=== PATIENT | male | born 1955 | race Hispanic/Latino ===

== ENCOUNTER 2018-12-18 23:45 | Emergency (ER) | payer BC ==
[2018-12-19] MEDS ORDERED: ASPIRIN 325 MG TABLET ONE (00:34)
[2018-12-19] MEDS ORDERED: SODIUM CHLORIDE 0.9% 1000ML 1,000 ML IV ONE (00:34)
[2018-12-19 00:36] LABS: BASOPHILS % (AUTO) 0.9 % (0.0-5.0); EOSINOPHILS % (AUTO) 2.8 % (0.0-8.0); HEMATOCRIT 44.8 % (42-54); LYMPHOCYTES % (AUTO) 39.6 % (21.0-51.0); MEAN CORPUSCULAR HEMOGLOBIN 31.3 pg (27.0-33.0); MEAN CORPUSCULAR HGB CONC 34.3 g/dL (32.0-36.0); MEAN CORPUSCULAR VOLUME 91.1 fL (79-99); MONOCYTES % (AUTO) 7.3 % (3.0-13.0); NEUTROPHILS % (AUTO) 49.4 % (40.0-77.0); NUCLEATED RED BLOOD CELLS 0.1 % (0.0-0.19); PLATELET COUNT (AUTO) 250 K/uL (130-400); RED BLOOD CELL COUNT(AUTO) 4.92 MIL/uL (4.50-6.20); RED CELL DISTRIBUTION WIDTH 13.5 % (11.0-15.5); WHITE BLOOD COUNT (AUTO) 10.4 K/uL (4.8-10.8)
[2018-12-19 00:45] LABS: CREATININE 1.3 mg/dL (0.5-1.5)
[2018-12-19 00:48] LABS: INR 1.09 (0.85-1.15); PARTIAL THROMBOPLASTIN TIME 34.5 SEC (26.3-35.5); PROTHROMBIN TIME 11.4 SEC (9.6-11.6)
[2018-12-19 00:50] LABS: ALBUMIN 3.6 g/dL (3.5-5.0); BILIRUBIN,TOTAL 0.4 mg/dL (0.2-1.0); TOTAL PROTEIN, SERUM 7.3 g/dL (6.0-8.3)
[2018-12-19 00:54] LABS: B-TYPE NATRIURETIC PEPTIDE 46 pg/mL (0-100)
[2018-12-19] MEDS ORDERED: DILTIAZEM HCL 60 MG TABLET ONE (01:27)
[2018-12-19] MEDS ORDERED: DILTIAZEM HCL 5 MG/ML 5 ML VIAL IVP ONE (01:39)
== END 2018-12-19 03:05 | disposition home or self-care (01) ==
LOC: EDH 23:45
DX: I48.0 Paroxysmal atrial fibrillation (principal); I10 Essential (primary) hypertension; E78.5 Hyperlipidemia, unspecified; Z79.899 Other long term (current) drug therapy
CPT/HCPCS: 36415; 71045; 80053; 82550; 83880; 84484; 85025; 85610; 85730; 93005; 96374; 96376; 99285; J3490; J7030; 96375

== ENCOUNTER 2021-01-30 01:08 | Inpatient (IN) | payer BC ==
[~2021-01-30] VITALS: Ht 177.8 cm; Wt 128.5 kg
[2021-01-30] MEDS ORDERED: APIX5TAB PO (01:51)
[2021-01-30] MEDS ORDERED: LOSA1TAB54 PO (01:51)
[2021-01-30] MEDS ORDERED: LORA10TA7 PO (01:51)
[2021-01-30] MEDS ORDERED: DRON400T7 PO ×2 (01:51→16:15)
[2021-01-30] MEDS ORDERED: ATOR10 PO (01:51)
[2021-01-30 02:00] LABS: BASOPHILS % (AUTO) 0.6 % (0.0-5.0); EOSINOPHILS % (AUTO) 1.7 % (0.0-8.0); HEMATOCRIT 47.9 % (42-54); LYMPHOCYTES % (AUTO) 31.2 % (21.0-51.0); MEAN CORPUSCULAR HEMOGLOBIN 30.4 pg (27.0-33.0); MEAN CORPUSCULAR HGB CONC 33.6 g/dL (32.0-36.0); MEAN CORPUSCULAR VOLUME 90.5 fL (79-99); MONOCYTES % (AUTO) 7.2 % (3.0-13.0); PLATELET COUNT (AUTO) 269 K/uL (130-400); RED BLOOD CELL COUNT(AUTO) 5.29 MIL/uL (4.50-6.20); RED CELL DISTRIBUTION WIDTH 13.2 % (11.0-15.5); WHITE BLOOD COUNT (AUTO) 12.4 K/uL (4.8-10.8)
[2021-01-30] MEDS ORDERED: DILTIAZEM 25MG INJ IVP SCH (02:00)
[2021-01-30] MEDS ORDERED: DILTIAZEM 125 MG/25 ML INJ 125 MG in 0.9%NACL 100ML 100 ML IV PRN (02:00)
[2021-01-30] MEDS ORDERED: 0.9%NACL 100ML 100 ML ONE (02:02)
[2021-01-30] MEDS ORDERED: DILTIAZEM 50MG VIAL IV ONE (02:02)
[2021-01-30] MEDS ORDERED: DILTIAZEM 125 MG/25 ML INJ IV ONE (02:02)
[2021-01-30 02:12] LABS: AMPHET/METH SCREEN,URINE NEGATIVE (NEGATIVE); BARBITURATE SCREEN, URINE NEGATIVE (NEGATIVE); BENZODIAZEPINES SCREEN,URINE NEGATIVE (NEGATIVE); CANNABINOID SCREEN,URINE NEGATIVE (NEGATIVE); COCAINE SCREEN,URINE NEGATIVE (NEGATIVE); OPIATE SCREEN,URINE NEGATIVE (NEGATIVE); PHENCYCLIDINE SCREEN,URINE NEGATIVE (NEGATIVE)
[2021-01-30 02:32] LABS: CREATININE 1.2 mg/dL (0.5-1.5); POTASSIUM 3.6 mmol/L (3.5-5.1)
[2021-01-30 02:35] LABS: INR 1.06 (0.85-1.15); PROTHROMBIN TIME 11.5 SEC (9.6-11.6)
[2021-01-30 02:37] LABS: ALBUMIN 3.5 g/dL (3.5-5.0); BILIRUBIN,TOTAL 0.5 mg/dL (0.2-1.0); PARTIAL THROMBOPLASTIN TIME 32.2 SEC (26.3-35.5); TOTAL PROTEIN, SERUM 7.2 g/dL (6.0-8.3)
[2021-01-30] MEDS ORDERED: PHARMACY COMMUNICATION MISC SCH (04:30)
[2021-01-30 05:00] VITALS: BP 127/96
[2021-01-30] MEDS ORDERED: ONDANSETRON 4MG INJ IVP PRN (05:30)
[2021-01-30] MEDS ORDERED: ACETAMINOPHEN 325 MG TAB PO PRN ×3 (05:30→09:30)
[2021-01-30 06:48] VITALS: BP 124/84
[2021-01-30 08:00] VITALS: BP 101/56
[2021-01-30] MEDS ORDERED: APIXABAN 5 MG TABLET PO SCH (09:00)
[2021-01-30] MEDS ORDERED: DRONEDARONE HYDROCHLORIDE 400 MG TABLET PO SCH (09:00)
[2021-01-30] MEDS ORDERED: LOSARTAN/HYDROCHLOROTHIAZIDE 50-12.5MG TABLET PO SCH (09:00)
[2021-01-30] MEDS ORDERED: DiphenhydrAMINE HCL 50 MG/ML VIAL IV PRN (09:30)
[2021-01-30] MEDS ORDERED: KCL 20 MEQ ERTAB PO PRN (09:30)
[2021-01-30] MEDS ORDERED: ONDANSETRON 4MG INJ IV PRN (09:30)
[2021-01-30] MEDS ORDERED: MAG/ALUM/SIMETH 30 ML UDCUP PO PRN (09:30)
[2021-01-30] MEDS ORDERED: POTASSIUM CHLORIDE 10% ELIXIR 20 MEQ/15 ML UDCUP PO PRN (09:30)
[2021-01-30] MEDS ORDERED: LIDOCAINE HCL-MPF 1% 2ML VIAL IV PRN (09:30)
[2021-01-30] MEDS ORDERED: 0.9%NACL 1000ML 1,000 ML IV SCH (09:30)
[2021-01-30] MEDS ORDERED: LACTULOSE 20 GM/30 ML UDCUP PO PRN (09:30)
[2021-01-30] MEDS ORDERED: POTASSIUM CHLORIDE 20MEQ/100ML 100 ML IV PRN (09:30)
[2021-01-30] MEDS ORDERED: DIPHENHYDRAMINE HCL 25 MG CAPSULE PO PRN (09:30)
[2021-01-30 10:57] VITALS: BP 108/60
[2021-01-30 16:00] VITALS: BP 109/63
[2021-01-30] MEDS ORDERED: ATORVASTATIN 10 MG TABLET PO SCH (21:00)
== END 2021-01-30 19:10 | disposition home or self-care (01) | DRG 309 ==
LOC: EDH 01:08 → EDHIP 03:25 → 4CH 05:03
PROVIDERS: ADMIT Internal Medicine; ATTEND Internal Medicine
DX: I48.0 Paroxysmal atrial fibrillation (principal); Z68.41 Body mass index [BMI] 40.0-44.9, adult; I50.30 Unspecified diastolic (congestive) heart failure; I11.0 Hypertensive heart disease with heart failure; E66.01 Morbid (severe) obesity due to excess calories; E11.69 Type 2 diabetes mellitus with other specified complication; E78.2 Mixed hyperlipidemia; G47.33 Obstructive sleep apnea (adult) (pediatric); J30.9 Allergic rhinitis, unspecified; K21.9 Gastro-esophageal reflux disease without esophagitis; L71.9 Rosacea, unspecified; E78.00 Pure hypercholesterolemia, unspecified; Z96.1 Presence of intraocular lens; F17.210 Nicotine dependence, cigarettes, uncomplicated; I25.10 Atherosclerotic heart disease of native coronary artery without angina pectoris; J44.9 Chronic obstructive pulmonary disease, unspecified; Z98.42 Cataract extraction status, left eye; Z98.84 Bariatric surgery status; Z79.01 Long term (current) use of anticoagulants; Z79.84 Long term (current) use of oral hypoglycemic drugs; Z79.899 Other long term (current) drug therapy; Z87.442 Personal history of urinary calculi
CPT/HCPCS: 36415; 71045; 80053; 80305; 82550; 83874; 84484; 85025; 85610; 85730; 93005; G0378; J3490

== ENCOUNTER 2021-11-03 19:17 | Emergency (ER) | payer BC ==
[~2021-11-03] VITALS: Ht 177.8 cm; Wt 131.5 kg
[~2021-11-03 19:17] MED LIST: APIX5TAB PO; ATOR10 PO; DRON400T7 PO; LORA10TA7 PO; LOSA1TAB54 PO
[2021-11-03 19:46] LABS: BASOPHILS % (AUTO) 0.8 % (0.0-5.0); EOSINOPHILS % (AUTO) 2.6 % (0.0-8.0); HEMATOCRIT 43.9 % (42-54); LYMPHOCYTES % (AUTO) 39.1 % (21.0-51.0); MEAN CORPUSCULAR HGB CONC 34.9 g/dL (32.0-36.0); MEAN CORPUSCULAR VOLUME 88.9 fL (79-99); MONOCYTES % (AUTO) 6.1 % (3.0-13.0); NEUTROPHILS % (AUTO) 51.2 % (40.0-77.0); PLATELET COUNT (AUTO) 263 K/uL (130-400); RED BLOOD CELL COUNT(AUTO) 4.94 MIL/uL (4.50-6.20); RED CELL DISTRIBUTION WIDTH 13.4 % (11.0-15.5); WHITE BLOOD COUNT (AUTO) 10.3 K/uL (4.8-10.8)
[2021-11-03 19:54] LABS: CREATININE 1.4 mg/dL (0.5-1.5); POTASSIUM 3.6 mmol/L (3.5-5.1)
[2021-11-03] MEDS ORDERED: DILTIAZEM 25MG INJ IVP ONE (20:00)
[2021-11-03 20:03] LABS: ALBUMIN 3.7 g/dL (3.5-5.0); MAGNESIUM 1.8 mg/dL (1.80-2.40); TOTAL PROTEIN, SERUM 7.5 g/dL (6.0-8.3)
[2021-11-03] MEDS ORDERED: MIDAZOLAM HCL 5 MG/ML 2ML VIAL IV ONE (21:09)
[2021-11-03 21:19] VITALS: BP_DIAS 54
[2021-11-03 22:21] VITALS: BP 128/74
== END 2021-11-03 22:33 | disposition home or self-care (01) ==
LOC: EDH 19:17
DX: I48.0 Paroxysmal atrial fibrillation (principal); Z79.01 Long term (current) use of anticoagulants; E78.00 Pure hypercholesterolemia, unspecified; I10 Essential (primary) hypertension; Z79.899 Other long term (current) drug therapy; Z98.890 Other specified postprocedural states
CPT/HCPCS: 99284; 96374; 96375; 82550; 83735; 84484; 80053; 85025; 36415; 93005 ×3; J3490; J2250

== ENCOUNTER 2023-04-07 22:52 | Emergency (ER) | payer BC ==
[~2023-04-07] VITALS: Ht 177.8 cm; Wt 130.2 kg
[2023-04-08] MEDS ORDERED: LACTATED RINGERS 1000ML 1,000 ML IV ONE (01:00)
[2023-04-08] MEDS ORDERED: METOCLOPRAMIDE 10 MG/2 ML VIAL IVP ONE (01:00)
[2023-04-08] MEDS ORDERED: MORPHINE 4 MG SYG IVP ONE (01:00)
[2023-04-08] MEDS ORDERED: ACET-2079 PO (01:15)
[2023-04-08] MEDS ORDERED: POLY17PO4 PO (01:15)
[2023-04-08 02:53] VITALS: BP 136/62; PULSE 58; RESP 18; O2SAT 98
== END 2023-04-08 02:54 | disposition home or self-care (01) ==
LOC: EDH 22:52
DX: K92.2 Gastrointestinal hemorrhage, unspecified (principal); K64.9 Unspecified hemorrhoids; I48.91 Unspecified atrial fibrillation; Z79.899 Other long term (current) drug therapy; Z98.890 Other specified postprocedural states
CPT/HCPCS: 99284; 96374; 96361; 96375; J7120; J2270; J2765

== ENCOUNTER 2025-01-16 20:33 | Observation (INO) | payer BC, MEDICARE ==
[~2025-01-16] VITALS: Ht 177.8 cm; Wt 130.2 kg
[~2025-01-16 20:33] MED LIST changes: +ACET-2079 PO; +POLY17PO4 PO
[2025-01-16 20:59] LABS: IMMATURE GRANULOCYTE ABSOLUTE 0.02 K/uL (0-1); NUCLEATED RED BLOOD CELLS 0.0 % (0.0-0.19); PLATELET COUNT (AUTO) 246 K/uL (130-400); RED BLOOD CELL COUNT(AUTO) 4.69 MIL/uL (4.50-6.20); RED CELL DISTRIBUTION WIDTH 13.8 % (11.0-15.5); WHITE BLOOD COUNT (AUTO) 8.2 K/uL (4.8-10.8)
[2025-01-16 21:12] LABS: CREATININE 1.4 mg/dL (0.5-1.3); GLOMERULAR FILTR. RATE CALC 55.0 mL/min (>90); GLUCOSE,RANDOM 246.0 mg/dL (70-105); SODIUM SERUM 141.0 mmol/L (136-145); UREA NITROGEN, BLOOD 22.0 mg/dL (7-18)
--- NOTE | 2025-01-16 21:17 | ERN ---
ED Note History of Present Illness Stated Complaint: C/O PALPITATIONS, HX OF A-FIB Chief Complaint: Palpitations Time Seen by MD: 20:48 Dictation: 69-year-old male presents to ER complains of palpitations. Patient states has history of AFib. Has not had an episode since 3 years ago. Denies chest pain or shortness of breath Allergies: Coded Allergies: No Allergy Information Available (Verified Allergy, Unknown, 01/30/21) No Known Drug Allergies (Unverified Allergy, Unknown, 01/30/21) Home Meds Active Scripts Acetaminophen with Codeine (Acetaminophen-Cod #3 Tablet) 300 Mg-30 Mg Tablet, 2 TAB PO Q4H PRN for PAIN LEVEL 7 TO 10, #40 TAB 0 Refills Prov:MATI ATKINSON Sr., MD 04/08/23 Polyethylene Glycol 3350 (Miralax) 17 Gram Powd.pack, 17 GM PO DAILY for constipation, #20 PACKET 0 Refills Prov:MATI ATKINSON Sr., MD 04/08/23 Dronedarone Hydrochloride (Multaq) 400 Mg Tablet, 400 MG PO BID for 30 Days, #60 TAB 3 Refills Prov:TACHO VILLALOBOS MD 01/30/21 Reported Medications Loratadine (Loratadine) 10 Mg Tablet, 10 MG PO DAILY, TAB 01/30/21 Apixaban (Eliquis) 5 Mg Tablet, 5 MG PO BID, TAB 01/30/21 Losartan/Hydrochlorothiazide (Losartan-Hctz 100-25 mg Tab) 1 Each Tablet, 1 EACH PO DAILY, TAB 01/30/21 Atorvastatin Calcium (LIPITOR) 10 Mg Tab, 10 MG PO HS, TAB 01/30/21 Past Medical History Past Medical History: A-Fib, Hypertension Surgical History: Unknown Surgical History Other: GASTRIC SLEEVE Social History: Negative Review of System Dictation CONSTITUTIONAL: NEGATIVE FOR FEVER,CHILLS, AND WEIGHT LOSS EYES: NEGATIVE FOR INJURY, PAIN,REDNESS, AND DISCHARGE ENT: NEGATIVE FOR INJURY,PAIN OR SWELLING CARDIOVASCULAR: NEGATIVE FOR CHEST PAIN, AND EDEMA. Positive palpitations RESPIRATORY: NEGATIVE FOR SHORTNESS OF BREATH, COUGH, WHEEZING, AND PLEURITIC CHEST PAIN ABDOMEN/GI: NEGATIVE FOR ABDOMINAL PAIN, NAUSEA, VOMITING AND DIARRHEA. BACK: NEGATIVE FOR PAIN OR INJURY : NEGATIVE FOR INJURY, BLEEDING AND DISCHARGE MS/EXTREMITY: NEGATIVE FOR INJURY AND DEFORMITY SKIN: NEGATIVE FOR RASH, AND DISCOLORATION NEURO: NEGATIVE FOR HEADACHE, WEAKNESS, NUMBNESS, TINGLING, AND SEIZURE PSYCH: NEGATIVE FOR SUICIDE IDEATION, HOMICIDAL IDEATION, AND HALLUCINATIONS ALLERGY/IMMUNOLOGY: NEGATIVE FOR HIVES, RASH, AND ALLERGIES ALL SYSTEMS NEGATIVE, EXCEPT NOTED ABOVE. 13 POINT REVIEW OF SYSTEMS ASSESSED AND ALL NEGATIVE EXCEPT FOR ABOVE. Initial Vital Sign VS Vital Signs Date Time Temp Pulse Resp B/P (MAP) Pulse Ox O2 Delivery O2 Flow Rate FiO2 01/16/25 20:40 98.1 98 20 127/75 96 Room Air 01/16/25 20:53 0 21 Physical Exam Dictation General: awake, alert, NAD Head/Face: Normocephalic, atraumatic Eyes: PERRL, EOMI, vision at baseline ENT: oral cavity clear, TMs clear, no signs of infection Neck: Trachea midline, supple, no nuchal rigidity Cardiovascular: RRR, normal no JVD Respiratory: CTAB, no respiratory distress, No rales or wheezes Abdomen: Soft, non-tender, non-distended, normal bowel sounds, no guarding or rebound. Skin: Warm, dry, normal turgor, no rash MS/Extremity: Pulses equal, no cyanosis, neurovascular intact, FROM Neuro: COAx4, GCS 15, strength 5/5, CN 2-12 intact, normal cerebellar exam, normal gait, Psych: Normal behavior, mood, and affect normal Results (Laboratory/Radiology) Laboratory/Radiology Laboratory Tests Test 01/16/25 20:51 01/16/25 23:50 White Blood Count 8.2 K/uL (4.8-10.8) Red Blood Count 4.69 MIL/uL (4.50-6.20) Hemoglobin 14.4 g/dL (14.0-18.0) Hematocrit 42.6 % (42-54) Mean Corpuscular Volume 90.8 fL (79-99) Mean Corpuscular Hemoglobin 30.7 pg (27.0-33.0) Mean Corpuscular Hemoglobin Concent 33.8 g/dL (32.0-36.0) Red Cell Distribution Width 13.8 % (11.0-15.5) Platelet Count 246 K/uL (130-400) Mean Platelet Volume 11.4 fL (7.5-10.5) H Immature Granulocyte % (Auto) 0.2 % (0-1) Neutrophils (%) (Auto) 58.4 % (40.0-77.0) Lymphocytes (%) (Auto) 31.1 % (21.0-51.0) Monocytes (%) (Auto) 6.4 % (3.0-13.0) Eosinophils (%) (Auto) 3.0 % (0.0-8.0) Basophils (%) (Auto) 0.9 % (0.0-5.0) Neutrophils # (Auto) 4.8 K/uL (1.8-7.7) Lymphocytes # (Auto) 2.6 K/uL (1.0-4.8) Monocytes # (Auto) 0.5 K/uL (0.1-1.0) Eosinophils # (Auto) 0.25 K/uL (0.00-0.70) Basophils # (Auto) 0.07 K/uL (0.00-0.20) Absolute Immature Granulocyte (auto 0.02 K/uL (0-1) Nucleated Red Blood Cells 0.0 % (0.0-0.19) Sodium Level 141 mmol/L (136-145) Potassium Level 3.7 mmol/L (3.5-5.1) Chloride Level 103 mmol/L (101-111) Carbon Dioxide Level 27 mmol/L (21-32) Blood Urea Nitrogen 22 mg/dL (7-18) H Creatinine 1.4 mg/dL (0.5-1.3) H Glomerular Filtration Rate Calc 55 mL/min (>90) Random Glucose 246 mg/dL (70-105) H Total Calcium 8.7 mg/dL (8.5-10.1) Total Creatine Kinase 151 U/L (21-232) # Troponin I High Sensitivity 32 ng/L (4-75) Urine Color Light-Yellow (YELLOW) Urine Appearance CLEAR (CLEAR) Urine pH 5.5 (5.0-8.0) Urine Specific [place] 1.011 (1.001-1.031) Urine Protein NEGATIVE mg/dL (NEGATIVE) Urine Glucose (UA) >=1000 mg/dL (NEGATIVE) H Urine Ketones NEGATIVE mg/dL (NEGATIVE) Urine Occult Blood NEGATIVE (NEGATIVE) Urine Nitrate NEGATIVE (NEGATIVE) Urine Bilirubin NEGATIVE mg/dL (NEGATIVE) Urine Urobilinogen 0.2 mg/dL (0.2-1.0) Urine Leukocyte Esterase NEGATIVE Kaley/uL Urine RBC 2-5 /HPF (0-1) H Urine WBC 0-1 /HPF (0-1) Urine Squamous Epithelial Cells RARE /HPF (0-2) Urine Bacteria None /HPF (None Seen) Urine Hyaline Casts 2-5 /LPF (0-1 /LPF) H X-RAY Comment: PATIENT: RICKEY LITTLE MR#: [id number] : 1955 SEX: M AGE: 69 LOCATION: [facility] ORDER 50 STATUS: REG ER REPORT#: [id number] SERVICE 47 REASON: chest pain ORDERING PHYSICIAN: SARAI LOBO PROCEDURE: CXR1VW - CHEST 1VW EXAM: CR Chest, 1 view CLINICAL HISTORY: Chest pain. COMPARISON: None provided. FINDINGS: The lungs show no infiltrates or other acute findings. No pleural effusion or pneumothorax. The cardiomediastinal silhouette is within normal limits. No acute osseous abnormality. IMPRESSION: No acute cardiopulmonary process is evident. /[place] ED Course ED Course Orders Procedure Category Date Status Time Cbc With Differential LAB 01/16/25 Complete 20:48 Chest 1vw RAD 01/16/25 Resulted 20:48 12 Lead Ekg Tracing- EKG 01/16/25 Complete Technical 20:48 Creatine Kinase, Total LAB 01/16/25 Complete 20:48 Troponin I High LAB 01/16/25 Complete Sensitivity 20:48 Urinalysis Profile LAB 01/16/25 Complete 20:48 Basic Metabolic Panel LAB 01/16/25 Complete 20:48 Metoprolol Tartrate PHA 01/16/25 Complete (Lopressor) 21:30 12 Lead Ekg Tracing- EKG 01/16/25 Complete Technical 21:44 0.9%Nacl 1000ml (Ns PHA 01/16/25 Complete 1000ml) 23:00 Diltiazem 25mg Inj PHA 01/16/25 Complete (Cardizem 25mg Inj) 23:00 Diltiazem 25mg Inj PHA 10/16/25 Complete (Cardizem 25mg Inj) 00:30 12 Lead Ekg Tracing- EKG 01/17/25 Logged Technical 00:51 Magnesium LAB 01/17/25 Logged 01:26 Current Medications Medications (Trade) Dose Ordered Sig/Sahra Route PRN Reason Start Time Stop Time Status Last Admin Dose Admin Diltiazem HCl (CARDIzem 25MG INJ) 5 mg ONCE ONCE IVP 01/16/25 23:00 01/16/25 23:01 DC 01/16/25 23:00 Diltiazem HCl (CARDIzem 25MG INJ) 5 mg ONCE ONCE IVP 01/17/25 00:30 01/17/25 00:31 DC 01/17/25 00:22 Metoprolol Tartrate (loprESSOR) 5 mg STAT ONCE IV 01/16/25 21:30 01/16/25 21:31 DC 01/16/25 21:19 Sodium Chloride 1,000 ml @ 0 mls/hr ONCE ONCE IV 01/16/25 23:00 01/16/25 23:01 DC 01/16/25 22:58 Vital Signs Date Time Temp Pulse Resp B/P (MAP) Pulse Ox O2 Delivery O2 Flow Rate FiO2 01/17/25 01:00 94 18 164/94 96 Room Air* 0 01/17/25 00:22 104 162/83 01/17/25 00:22 104 14 162/83 98 Room Air* 0 01/16/25 23:48 98 14 151/79 98 Room Air* 0 01/16/25 23:00 114 143/84 01/16/25 22:47 114 16 143/84 97 Room Air* 0 01/16/25 22:21 100 18 122/51 97 Room Air* 0 21 01/16/25 21:39 98.2 104 20 164/84 98 Room Air* 0 01/16/25 21:19 122 16 163/80 97 Room Air* 0 01/16/25 21:19 122 163/80 01/16/25 20:53 98.2 133 16 188/107 97 Room Air* 0 01/16/25 20:40 98.1 98 20 127/75 96 Room Air Medical Decision Making MDM MDM: Differential diagnosis: AFib, palpitations, Rationale: Tests considered and ordered secondary to shared decision making include: labs, ECG and radiology Previous outside records reviewed: Old ER visits. Risk of complication and/or morbidity or mortality of patient management: None Medications-Per medication reconciliation Need for hospitalization: Patient does meet criteria for hospitalization. Need for emergency major/minor surgery: No There are no social concerns with this patient. Prescription drug management Prescriptions will include symptomatic care Patient's prior external medical records from other ER visits were reviewed by me as indicated. Prior testing and results from previous visits were reviewed. Prior tests were taken into account with medical decision making and resource utilization, independent historian/historians were used to obtain complete medical history. I independently interpreted the test that were performed, results were reviewed by me and considered findings on radiology if ordered. Attempted Lopressor IV for conversion with no success. Attempted Cardizem 5mg IV for conversion with no success attempted another 5 mg of Cardizem IV no success. Dr. Rodgers consulted for admission and accepted patient. DX & DISP Disposition: Inpatient Departure Impression: Primary Impression: Paroxysmal atrial fibrillation with RVR Condition: Stable Referrals: SIGRID RODGERS MD (PCP) SARAI LOBO OPERATIONS AGENT Jan 16, 2025 21:17
[2025-01-16 21:21] LABS: CREATINE KINASE, TOTAL 151.0 U/L (21-232)
--- NOTE | 2025-01-16 22:26 | HMCIMG ---
EXAM: CR Chest, 1 view CLINICAL HISTORY: Chest pain. COMPARISON: None provided. FINDINGS: The lungs show no infiltrates or other acute findings. No pleural effusion or pneumothorax. The cardiomediastinal silhouette is within normal limits. No acute osseous abnormality. IMPRESSION: No acute cardiopulmonary process is evident. /[place]
[2025-01-16] MEDS: 0.9%NACL 1000ML 1,000 ML IV ONE (22:58)
[2025-01-17 00:12] LABS: APPEARANCE,URINE CLEAR (CLEAR); GLUCOSE, URINE (UA) >=1000 mg/dL (NEGATIVE); LEUKOCYTE ESTERASE ,URINE NEGATIVE Leu/uL (NEGATIVE); NITRATE,URINE NEGATIVE (NEGATIVE); OCCULT BLOOD,URINE NEGATIVE (NEGATIVE)
[2025-01-17 00:15] LABS: ADD UA MICROSCOPIC YES
[2025-01-17 00:18] LABS: SQUAMOUS EPITHELIAL CELL,UR RARE /HPF (0-2)
--- NOTE | 2025-01-17 01:08 | EKG ---
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
--- NOTE | 2025-01-17 01:08 | EKG ---
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
[2025-01-17] MEDS ORDERED: ATOR40TA71 PO (01:55)
[2025-01-17] MEDS ORDERED: 0.9% NACL 500ML IV.SOLN 500 ML IV SCH (02:00)
[2025-01-17] MEDS ORDERED: DEXTROSE 50%-WATER 50 ML DISP.SYRIN IV PRN (02:00)
[2025-01-17] MEDS ORDERED: GLUCAGON 1MG KIT 1 MG ML IM PRN (02:00)
[2025-01-17] MEDS ORDERED: LACTULOSE 20 GM/30 ML UDCUP PO PRN (02:00)
[2025-01-17] MEDS ORDERED: guaiFENesin-DM 200/20MG 10ML PO PRN (02:00)
[2025-01-17] MEDS ORDERED: PoTASSium chloRIDE 20MEQ ER 20 MEQ ERTAB PO PRN ×2 (02:00)
[2025-01-17] MEDS ORDERED: PoTASSium chl 10% ELIXIR 20MEQ 20 MEQ/15 ML UDCUP PO PRN ×2 (02:00)
[2025-01-17] MEDS ORDERED: MAG/ALUM/SIMETH 30 ML UDCUP PO PRN (02:00)
[2025-01-17] MEDS ORDERED: 0.9%NACL 1000ML 1,000 ML IV SCH (02:00)
[2025-01-17] MEDS ORDERED: ATOR20TA65 PO (02:03)
[2025-01-17] MEDS ORDERED: TIRZ2.5P SQ (02:04)
[2025-01-17 02:24] LABS: CREATINE KINASE, TOTAL 155.0 U/L (21-232)
[2025-01-17] MEDS: 0.9%NACL 1000ML 1,000 ML IV SCH (03:54)
[2025-01-17] MEDS: MAGNESIUM 2GM PREMIX 50ML 50 ML IV PRN (06:17)
--- NOTE | 2025-01-17 06:30 | EKG ---
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
[2025-01-17 07:51] LABS: CREATININE 1.0 mg/dL (0.5-1.3); GLOMERULAR FILTR. RATE CALC 82.0 mL/min (>90); GLUCOSE,RANDOM 138.0 mg/dL (70-105); SODIUM SERUM 142.0 mmol/L (136-145); UREA NITROGEN, BLOOD 17.0 mg/dL (7-18)
--- NOTE | 2025-01-17 08:41 | HP ---
HISTORY AND PHYSICAL Date of Visit: Jan 17, 2025 Time of Visit: 08:28 ADMISSION DATE: Jan 17, 2025 at 01:38 CC: PALPITATIONS HPI: 69-year-old male presents to ER complains of palpitations. Patient states has history of AFib. Has not had an episode since 3 years ago. Denies chest pain or shortness of breath. He is also on GLP1 to help him with weight loss. He was having problems with cost of medication so he was rationing his medication to only taking once a day instead of twice a day for the entire month so that he would not brook out of medication until he got it re-authorized and covered at a reasonable [place]. No fever chills cough congestion. No abdominal pain nausea vomiting constipation. PAST MEDICAL HISTORY: HYPERTENSIVE HEART DISEASE SEVERE CONCENTRIC LVH W VENTRICULAR HYPERTROPHY AND EF 65% PAROX AFIB ON MULTAQ CAD - HEART CATH WITH 20% MID LAD LESION WITH LVEF 65% - 09/2013 DM II ON GLP1 MORBID OBESITY / BMI 42 MIXED HYPERLIPIDEMIA HX KIDNEY STONES ALLERGIC RHINITIS GERD CATARACTS HX GASTRIC SLEEVE SURGERY OBS SLEEP APNEA HX SPONTANEOUS ACUTE TEMPORAL SUBARACHNOID HEMORRHAGE ON XARELTO ANTICOAGULATION S/P REVERSAL OF ANTICOAGULANT AT FREE STANDING ER (status post infusion of Kcentra 08/23/2020) TRANSITIONED TO [facility] SOCIAL HISTORY: LIVES LOCALLY NO ALCOHOL TOBACCO OR DRUG ABUSE FAMILY HISTORY: + CAD ^ Patient History: Cardiovascular disease FATHER Allergies: Coded Allergies: No Allergy Information Available (Verified Allergy, Unknown, 01/30/21) amoxicillin (Unverified Allergy, Unknown, 01/17/25) clavulanic acid (Unverified Allergy, Unknown, 01/17/25) Scheduled Apixaban (Eliquis), 5 MG PO BID, (Reported) Atorvastatin Calcium (Atorvastatin Calcium), 1 TAB PO DAILY Dronedarone Hydrochloride (Multaq), 400 MG PO BID Loratadine (Loratadine), 10 MG PO DAILY, (Reported) Losartan/Hydrochlorothiazide (Losartan-Hctz 100-25 mg Tab), 1 EACH PO DAILY, (Reported) Tirzepatide (Mounjaro), 2.5 MG SQ QWEEK Discontinued Medications Acetaminophen with Codeine (Acetaminophen-Cod #3 Tablet), 2 TAB PO Q4H PRN for PAIN LEVEL 7 TO 10 Atorvastatin Calcium (Lipitor), 10 MG PO HS, (Reported) Atorvastatin Calcium (Atorvastatin Calcium), 1 TAB PO DAILY, (Reported) Polyethylene Glycol 3350 (Miralax), 17 GM PO DAILY Review of Systems Normal Constitutional:, Normal Eyes:, Normal Ear/Nose/Mouth/Throat, Normal Respiratory:, Normal Gastrointestinal:, Normal Genitourinary:, Normal Integumentary:, Normal Musculoskeletal:, Normal Neurological:, Normal Psychological:, Normal Endocrine:, Normal Hematologic/Lymphatic:, Normal Allergic/Immunologic:; Abnormal Cardiovascular: (REFER TO HPI) Physical Exam Vital Signs Vital Signs Date Time Temp Pulse Resp B/P (MAP) Pulse Ox O2 Delivery O2 Flow Rate FiO2 01/16/25 20:40 98.1 98 20 127/75 96 Room Air 01/16/25 20:53 0 21 Appearance: Obese Eyes: Clear, PERRL, EOM Normal Ear/Nose/Mouth/Throat: Landmarks WNL, Hearing WNL Neck: Symmetric, trach midline, Thyroid WNL Cardiovascular: PMI WNL, Abnormal (INTEMRITTENT TACHYCARDIA AND IRREGULAR) Respiratory: No Retractions, No rubs/wheezing, Lungs clear G.I.: Normal bowel sounds, No rebound tenderness Lymphatic: No lymphadenopathy neck Musculoskeletal: Gait WNL Skin: No rash/ulcers Neurology: Nerves I-XII intact, Sensation WNL Psychology: Insight WNL, Orientation WNL, Memory WNL, Affect WNL Diagnostics Laboratory Tests Test 01/16/25 20:51 01/16/25 23:50 01/17/25 02:01 01/17/25 07:31 Range/Units White Blood Count 8.2 4.8-10.8 K/uL Red Blood Count 4.69 4.50-6.20 MIL/uL Hemoglobin 14.4 14.0-18.0 g/dL Hematocrit 42.6 42-54 % Mean Corpuscular Volume 90.8 79-99 fL Mean Corpuscular Hemoglobin 30.7 27.0-33.0 pg Mean Corpuscular Hemoglobin Concent 33.8 32.0-36.0 g/dL Red Cell Distribution Width 13.8 11.0-15.5 % Platelet Count 246 130-400 K/uL Mean Platelet Volume 11.4 7.5-10.5 fL Immature Granulocyte % (Auto) 0.2 0-1 % Neutrophils (%) (Auto) 58.4 40.0-77.0 % Lymphocytes (%) (Auto) 31.1 21.0-51.0 % Monocytes (%) (Auto) 6.4 3.0-13.0 % Eosinophils (%) (Auto) 3.0 0.0-8.0 % Basophils (%) (Auto) 0.9 0.0-5.0 % Neutrophils # (Auto) 4.8 1.8-7.7 K/uL Lymphocytes # (Auto) 2.6 1.0-4.8 K/uL Monocytes # (Auto) 0.5 0.1-1.0 K/uL Eosinophils # (Auto) 0.25 0.00-0.70 K/uL Basophils # (Auto) 0.07 0.00-0.20 K/uL Absolute Immature Granulocyte (auto 0.02 0-1 K/uL Nucleated Red Blood Cells 0.0 0.0-0.19 % Sodium Level 141 142 136-145 mmol/L Potassium Level 3.7 3.6 3.5-5.1 mmol/L Chloride Level 103 106 101-111 mmol/L Carbon Dioxide Level 27 30 21-32 mmol/L Blood Urea Nitrogen 22 17 7-18 mg/dL Creatinine 1.4 1.0 0.5-1.3 mg/dL Glomerular Filtration Rate Calc 55 82 >90 mL/min Random Glucose 246 138 70-105 mg/dL Total Calcium 8.7 8.1 8.5-10.1 mg/dL Total Creatine Kinase 151 155 21-232 U/L Troponin I High Sensitivity 32 25.0 4-75 ng/L Urine Color Light-Yellow YELLOW Urine Appearance CLEAR CLEAR Urine pH 5.5 5.0-8.0 Urine Specific [place] 1.011 1.001-1.031 Urine Protein NEGATIVE NEGATIVE mg/dL Urine Glucose (UA) >=1000 NEGATIVE mg/dL Urine Ketones NEGATIVE NEGATIVE mg/dL Urine Occult Blood NEGATIVE NEGATIVE Urine Nitrate NEGATIVE NEGATIVE Urine Bilirubin NEGATIVE NEGATIVE mg/dL Urine Urobilinogen 0.2 0.2-1.0 mg/dL Urine Leukocyte Esterase NEGATIVE NEGATIVE Kaley/uL Urine RBC 2-5 0-1 /HPF Urine WBC 0-1 0-1 /HPF Urine Squamous Epithelial Cells RARE 0-2 /HPF Urine Bacteria None None Seen /HPF Urine Hyaline Casts 2-5 0-1 /LPF /LPF Magnesium Level 1.70 1.80-2.40 mg/dL Test 01/17/25 08:11 Range/Units Whole Blood Glucose 146 70-110 MG/DL Assessment/Plan Assessment/Plan ASSESSMENT: THIS IS 69 YR OLD MAN WITH HISTORY OF HYPERTENSIVE HEART DISEASE SEVERE CONCENTRIC LVH W VENTRICULAR HYPERTROPHY AND EF 65% PAROX AFIB ON MULTAQ CAD - HEART CATH WITH 20% MID LAD LESION WITH LVEF 65% - 09/2013 DM II ON GLP1 MORBID OBESITY / BMI 42 MIXED HYPERLIPIDEMIA HX KIDNEY STONES ALLERGIC RHINITIS GERD CATARACTS HX GASTRIC SLEEVE SURGERY OBS SLEEP APNEA HX SPONTANEOUS ACUTE TEMPORAL SUBARACHNOID HEMORRHAGE ON XARELTO ANTICOAGULATION S/P REVERSAL OF ANTICOAGULANT AT FREE STANDING ER (status post infusion of Kcentra 08/23/2020) TRANSITIONED TO [facility] HE PRESENTED WITH RECURRENT AFIB IN RVR WITH MILD DEHYDRATION AFTER HAVING PROBLEMS WITH MEDICATION COMPLIANCE ON MULTAQ PLAN: HYDRATE WITH IVF HOLD GLP1 MONITOR ON TELEMETRY RESUME MULTAQ AT BID WITH PRN METOPROLOL IV FOR HR > 100 CONT LOSARTAN BUT ADJUST NEEDED FOR HTN MONITOR GLUCOSE AND COVER WITH ADDITIONAL INSULIN PRL SUPPLEMENT ELECTROLYTES SUPPLEMENT MAGNESIUM SERIAL CARDIAC ENZYMES INCREASE DIET AND REHAB TOLERATED CONTINUE ANTICOAGULATION SUPPORTIVE MEASURES SIGRID GALLEGO MD Jan 17, 2025 08:41
[2025-01-17] MEDS ORDERED: DRONEDARONE HYDROCHLORIDE 400 MG TABLET PO SCH (09:00)
[2025-01-17] MEDS: FAMOTIDINE 20MG TAB PO SCH (09:31)
[2025-01-17] MEDS: DRONEDARONE HYDROCHLORIDE 400 MG TABLET PO SCH (09:31)
[2025-01-17] MEDS: MAGNESIUM OXIDE 400 MG TABLET PO SCH (09:31)
--- NOTE | 2025-01-17 15:19 | DS ---
DISCHARGE SUMMARY Date of Visit: Jan 17, 2025 Time of Visit: 15:19 ADMISSION DATE: Jan 17, 2025 at 01:38 DISCHARGE DATE: Jan 17, 2025 ATTENDED PHYSICIAN: Taryn Rodgers MD DISCHARGE DIAGNOSIS: RECURRENT AFIB IN RVR MILD DEHYDRATION PROBLEMS WITH MEDICATION COMPLIANCE ON MULTAQ HYPERTENSIVE HEART DISEASE SEVERE CONCENTRIC LVH W VENTRICULAR HYPERTROPHY AND EF 65% PAROX AFIB ON MULTAQ CAD - HEART CATH WITH 20% MID LAD LESION WITH LVEF 65% - 09/2013 DM II ON GLP1 MORBID OBESITY / BMI 42 MIXED HYPERLIPIDEMIA HX KIDNEY STONES ALLERGIC RHINITIS GERD CATARACTS HX GASTRIC SLEEVE SURGERY OBS SLEEP APNEA HX SPONTANEOUS ACUTE TEMPORAL SUBARACHNOID HEMORRHAGE ON XARELTO ANTICOAGULATION S/P REVERSAL OF ANTICOAGULANT AT FREE STANDING ER (status post infusion of Kcentra 08/23/2020) TRANSITIONED TO [facility] CIGAR HEAD PEGGER(S): NONE PROCEDURES: NONE RADIOLOGY: HOSPITAL COURSE: THIS IS A 69 YR OLD MAN WITH THE ABOVE PMH WHO PRESENTED WITH RECURRENT AFIB IN RVR WITH MILD DEHYDRATION AFTER HAVING PROBLEMS WITH MEDICATION COMPLIANCE ON MULTAQ DUE TO INSURANCE COVERAGE AND COST ISSUES. HE WAS HYDRATED AND TREATED WITH PRN DOSE OF IV METOPROLOL AND CARDIZEM AND RESUMED ON HIS PREVIOUS MEDICATION REGIMEN. HE CONTINUED IN AFIB BUT WAS RATE CONTROLLED ON HIS ANTICOAGULATION AND THEN DISCHARGED IN STABLE CONDITION TO FOLLOW UP AN OUTPATIENT. DIET: HEART HEALTHY ACTIVITY: UP AT [facility] CONDITION: BACK TO BASELINE EQUIPMENT: NONE FOLLOW UP APPOINTMENT(S): DR RODGERS IN 2-5 DAYS DISPOSITION: HOME CODE STATUS: FULL MEDICATION RECONCILIATION : RESUME PREVIOUS MEDICATIONS ^ Home Meds Active Scripts Tirzepatide (Mounjaro) 2.5 Mg/0.5 Ml Pen.injctr, 2.5 MG SQ QWEEK, #4 EA 0 Refills Prov:TARYN RODGERS MD 01/17/25 Atorvastatin Calcium (Atorvastatin Calcium) 20 Mg Tablet, 1 TAB PO DAILY for 30 Days, #30 TAB 0 Refills Prov:TARYN RODGERS MD 01/17/25 Dronedarone Hydrochloride (Multaq) 400 Mg Tablet, 400 MG PO BID for 30 Days, #60 TAB 3 Refills Prov:TACHO VILLALOBOS MD 01/30/21 Reported Medications Loratadine (Loratadine) 10 Mg Tablet, 10 MG PO DAILY, TAB 10/29/21 Apixaban (Eliquis) 5 Mg Tablet, 5 MG PO BID, TAB 01/30/21 Losartan/Hydrochlorothiazide (Losartan-Hctz 100-25 mg Tab) 1 Each Tablet, 1 EACH PO DAILY, TAB 01/30/21 Discontinued Reported Medications Atorvastatin Calcium (Atorvastatin Calcium) 40 Mg Tablet, 1 TAB PO DAILY for 30 Days, #30 TAB 0 Refills 01/17/25 Atorvastatin Calcium (LIPITOR) 10 Mg Tab, 10 MG PO HS, TAB 01/30/21 Discontinued Scripts Acetaminophen with Codeine (Acetaminophen-Cod #3 Tablet) 300 Mg-30 Mg Tablet, 2 TAB PO Q4H PRN for PAIN LEVEL 7 TO 10, #40 TAB 0 Refills Prov:MATI ATKINSON Sr., MD 04/08/23 Polyethylene Glycol 3350 (Miralax) 17 Gram Powd.pack, 17 GM PO DAILY for constipation, #20 PACKET 0 Refills Prov:MATI ATKINSON Sr., MD 04/08/23 TARYN RODGERS MD Jan 17, 2025 15:19
[2025-01-17 16:00] VITALS: BP 130/60; PULSE 75; RESP 17; TEMP 97.5; O2SAT 97
== END 2025-01-17 16:30 | disposition home or self-care (01) ==
LOC: EDH 20:33 → EDHIP 01-17 01:38 → INTOOBSV 01-17 01:38 → EDHIP 01-17 16:30
PROVIDERS: ADMIT Internal Medicine; ATTEND Internal Medicine
DX: I48.0 Paroxysmal atrial fibrillation (principal); R00.2 Palpitations; E86.0 Dehydration; I11.9 Hypertensive heart disease without heart failure; I25.10 Atherosclerotic heart disease of native coronary artery without angina pectoris; K21.9 Gastro-esophageal reflux disease without esophagitis; K59.00 Constipation, unspecified; E11.36 Type 2 diabetes mellitus with diabetic cataract; E78.2 Mixed hyperlipidemia; E66.01 Morbid (severe) obesity due to excess calories; G47.33 Obstructive sleep apnea (adult) (pediatric); J30.9 Allergic rhinitis, unspecified; Z68.41 Body mass index [BMI] 40.0-44.9, adult; Z79.01 Long term (current) use of anticoagulants; Z79.899 Other long term (current) drug therapy; Z98.890 Other specified postprocedural states
CPT/HCPCS: 99285; 71045; 96375 ×2; 82550 ×2; 84484 ×2; 80048 ×2; 85025; 36415 ×2; 93005 ×3; 96361; 96365; 96376; 83735; 82948 ×2; 81001; J3490 ×3; J7030 ×3; G0378; J3475; 96374